=== PATIENT | male | born 1990 | race African-American/Black ===

== ENCOUNTER 2016-05-13 02:20 | Emergency (ER) | payer SELFPAY ==
[~2016-05-13] VITALS: Ht 175.3 cm; Wt 81.6 kg
[2016-05-13] MEDS ORDERED: NKM (02:26)
[2016-05-13] MEDS ORDERED: Solu-MEDROL 125mg Inj IVP ONE (02:45)
[2016-05-13] MEDS ORDERED: Ipratropium 0.02% Inh Soln 2.5ml UD HHN ONE (02:45)
[2016-05-13] MEDS ORDERED: Albuterol ud Inhalation HHN ONE (02:45)
[2016-05-13 02:46] VITALS: BP 145/94
--- NOTE | 2016-05-13 02:46 | Emergency Room Report ---
History of Present Illness General Chief Complaint: Dyspnea/Respdistress Source: Patient Present Illness HPI Is a 25-year-old male with no past medical history. He presents with chief complaint of coughing and shortness of breath the last 5 days. Denies any fever or chills. Has chest tightness and pain. Worse with lying flat. Worse with inspiration. Some diuretics up unable to breathe. He also been noticing his been getting worse for the last month. Unable to smoke in the last few days. Denies any other complaint. 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 He does not wear a mask most of the time. He said is very oral. No history of asthma as a kid. Allergies: Coded Allergies: No Known Allergies (Unverified , 05/13/16) Patient History Past Medical History: none Past Surgical History: none Pertinent Family History: none Social History: Reports: smoking Immunizations: other Reviewed Nursing Documentation: PMH: Agreed, PSxH: Agreed Nursing Documentation-PM Past Medical History: No Stated History Review of Systems Eye: Denies: blurred vision, eye pain ENT: Denies: ear pain, nose congestion, throat swelling Respiratory: Reports: cough, shortness of breath Cardiovascular: Reports: chest pain, Denies: palpitations Gastrointestinal: Denies: abdominal pain, diarrhea, nausea, vomiting Musculoskeletal: Denies: back pain, joint pain Skin: Denies: rash Neurological: Denies: headache, numbness Endocrine: Denies: increased thirst, increased urine Hematologic/Lymphatic: Denies: easy bruising All Other Systems: negative except mentioned in HPI Physical Exam Vital Signs Date Time Temp Pulse Resp B/P Pulse Ox O2 Delivery O2 Flow Rate FiO2 05/13/16 02:23 97.3 88 18 147/106 94 Room Air vitals with hypertension Sp02 EP Interpretation: reviewed, normal General Appearance: well appearing, mild distress Head: normocephalic, atraumatic Eyes: bilateral eye EOMI, bilateral eye PERRL ENT: hearing grossly normal, normal pharynx Neck: full range of motion, supple, no meningismus Respiratory: chest non-tender, respiratory distress - Mild, decreased breath sounds, accessory muscle use, wheezing Cardiovascular #1: regular rate, rhythm, no murmur Gastrointestinal: normal bowel sounds, non tender, no mass, no organomegaly, no bruit, non-distended Musculoskeletal: back normal, gait/station normal, normal range of motion Neurologic: alert, oriented x3 Psychiatric: mood/affect normal Skin: warm/dry Medical Decision Making Diagnostic Impression: Primary Impression: Asthma exacerbation ER Course Patient presents with asthma exacerbation. His wheezing resolved after breathing treatment. His WBC show an elevation of the eosinophil count. This points toward allergic component. There is old carpet in his apartment. He may have allergy to dust from his work. He is feeling better now. No longer wheezing. No evidence of ACS, PE, dissection to name a few. We'll discharge home. Lab Results Impression labs unremarkable Rhythm Strip Diag. Results EP Interpretation: yes Rate: 87 Rhythm: NSR, no PVC's, no ectopy Chest X-Ray Diagnostic Results EP Interpretation: Yes Findings: no consolidation, no effusion, no pneumothorax, no acute cardiopulmonary disease Number of Views: 1 Last Vital Signs Date Time Temp Pulse Resp B/P Pulse Ox O2 Delivery O2 Flow Rate FiO2 05/13/16 02:23 97.3 88 18 147/106 94 Room Air Status: improved Disposition: HOME, SELF-CARE Condition: Stable Scripts Prednisone* (PREDNISONE*) 20 Mg Tablet 60 MG ORAL DAILY, #15 TAB Prov: ELIDA JALLOH M.D. 05/13/16 Albuterol Sulfate* (ALBUTEROL SULFATE MDI*) 8.5 Gm Hfa.aer.ad 2 PUFF INH Q4H Y for cough/wheezing, #1 EA 0 Refills Prov: ELIDA JALLOH M.D. 05/13/16 Additional Instructions: Followup with your DrLexi in 2-3 days. Return if symptom worsen. ELIDA JALLOH M.D. May 13, 2016 02:46
[2016-05-13 03:19] LABS: EOSINOPHILS % (AUTO) 15.2 % (0.0-3.0); LYMPHOCYTES % (AUTO) 35.7 % (20.0-45.0); MEAN CORPUSCULAR HEMOGLOBIN 29.6 PG (27.0-31.0); MEAN CORPUSCULAR HGB CONC 33.1 G/DL (32.0-36.0); MEAN CORPUSCULAR VOLUME 90 FL (80-99); MEAN PLATELET VOLUME 7.9 FL (6.5-10.1); MONOCYTES % (AUTO) 11.4 % (1.0-10.0); NEUTROPHILS % (AUTO) 35.7 % (45.0-75.0); PLATELET COUNT 272 K/UL (150-450); RED BLOOD COUNT 5.58 M/UL (4.70-6.10); RED CELL DISTRIBUTION WIDTH 11.6 % (11.6-14.8); WHITE BLOOD COUNT 4.4 K/UL (4.8-10.8)
[2016-05-13 03:42] LABS: ANION GAP 12 (5-15); CALCIUM 8.9 mg/dL (8.6-10.2); CARBON DIOXIDE 26 mEQ/L (20-30); CHLORIDE 102 mEQ/L (98-107); GLOMERULAR FILTRATION RATE > 60 mL/min (>60); HEMOLYSIS 7; POTASSIUM 4.3 mEQ/L (3.4-4.9); SODIUM 140 mEQ/L (135-145)
[2016-05-13] MEDS ORDERED: ALBUTEROL SULF8.5 GM INH (04:04)
[2016-05-13] MEDS ORDERED: PREDNISONE20 MG ORAL (04:04)
[2016-05-13 04:19] VITALS: BP 144/90
--- NOTE | 2016-05-13 11:38 | Diagnostic Imaging Report ---
Indication: Chest Pain Comparison: None A single view chest radiograph was obtained. Findings: There is pleural disease at the left lung base. This may be pleural thickening or an effusion. Heart size is normal. No infiltrates identified. Impression: Left basilar pleural thickening versus fluid
== END 2016-05-13 04:15 | disposition home or self-care (01) ==
LOC: EMR 02:51
DX: J45.901 Unspecified asthma with (acute) exacerbation (principal); R05 Cough; F17.200 Nicotine dependence, unspecified, uncomplicated
CPT/HCPCS: 36415; 71010; 80048; 85025; 94640; 94664; 96361; 96374; 99284; J2930

== ENCOUNTER 2019-04-13 17:22 | Emergency (ER) | payer MEDICAID ==
[~2019-04-13] VITALS: Ht 172.7 cm; Wt 86.2 kg
[~2019-04-13 17:22] MED LIST: ALBUTEROL SULF8.5 GM INH; NKM; PREDNISONE20 MG ORAL
--- NOTE | 2019-04-13 17:55 | NUR ---
ED Nurse Note: Patient arrived to ED by car from home c/o falling earlier today. Patient fell when walking on broken steps. Right knee 7/10 pain. Patient AxO x 4, VSS. No s/s of acute distress. Bed in lowest position.
[2019-04-13] MEDS ORDERED: IBU800 MG PO (19:06)
--- NOTE | 2019-04-13 19:06 | Emergency Room Report ---
History of Present Illness General Chief Complaint: Lower Extremity Injury Source: Patient Present Illness HPI 28-year-old male with history of asthma currently controlled here complaining of right knee pain after falling off the stairs yesterday. Patient rating the pain 10 out of 10 without radiation. Denies any calf tenderness, tingling numbness. Has not taken medication for symptom relief. Denies head injury, loss of consciousness, dizziness and headache at this time. Denies all other injuries. Is ambulating to the ER with a slight limp. Obvious contusion noted on the right knee. Allergies: Coded Allergies: No Known Allergies (Unverified , 05/13/16) Patient History Past Medical History: see triage record Past Surgical History: unable to obtain Pertinent Family History: none Immunizations: UTD Reviewed Nursing Documentation: PMH: Agreed; PSxH: Agreed Nursing Documentation-PMH Past Medical History: No History, Except For Hx Asthma: Yes Review of Systems All Other Systems: negative except mentioned in HPI Physical Exam Vital Signs Date Time Temp Pulse Resp B/P (MAP) Pulse Ox O2 Delivery O2 Flow Rate FiO2 04/13/19 17:53 98.2 73 16 133/71 (91) 96 Room Air Sp02 EP Interpretation: reviewed, normal General Appearance: no apparent distress, alert, GCS 15, non-toxic Head: normocephalic, atraumatic Eyes: bilateral eye normal inspection, bilateral eye PERRL ENT: hearing grossly normal, normal pharynx, no angioedema, normal voice Neck: full range of motion, supple, no meningismus, supple/symm/no masses Respiratory: chest non-tender, lungs clear, no rhonchi, no wheezing Cardiovascular #1: regular rate, rhythm, no edema, no murmur, normal capillary refill Cardiovascular #2: 2+ dorsalis pedis (R), 2+ dorsalis pedis (L) Gastrointestinal: normal bowel sounds, non tender, soft, non-distended, no guarding, no rebound Rectal: deferred Musculoskeletal: back normal, no calf tenderness, pelvis stable, non-tender, swelling - Right proximal tibiofibular Neurologic: alert, motor strength/tone normal, oriented x3, sensory intact, responsive, speech normal Psychiatric: judgement/insight normal, memory normal, mood/affect normal, no suicidal/homicidal ideation Skin: no rash Lymphatic: no adenopathy Procedures Splinting Splinting : Consent: Verbal Location: Right knee Pre-Made Type: knee immobilizer Pre-Proc Neuro Vasc Exam: normal Post-Proc Neuro Vasc Exam: normal Patient Tolerated: Well Complications: None Medical Decision Making PA Attestation All diagnoses and treatment plans were reviewed and discussed with my supervising physician Dr. Vogt Diagnostic Impression: Primary Impression: Knee contusion ER Course 28-year-old male with history of asthma currently controlled here complaining of right knee pain after falling off the stairs yesterday. Patient rating the pain 10 out of 10 without radiation. Denies any calf tenderness, tingling numbness. Has not taken medication for symptom relief. Denies head injury, loss of consciousness, dizziness and headache at this time. Denies all other injuries. Is ambulating to the ER with a slight limp. Obvious contusion noted on the right knee. Ddx considered but are not limited to: Knee sprain, strain, fracture, contusion , meniscus tear injury Vital signs: are WNL, pt. is afebrile H&PE are most consistent with: Right knee contusion ORDERS: Knee x-ray, ibuprofen 800 ER intervention: Tylenol, knee immobilizer, and crutches DISCHARGE: At this time pt. is stable for d/c to home. Will provide printed patient care instructions, and any necessary prescriptions. Care plan and follow up instructions have been discussed with the patient prior to discharge. Patient to follow-up with primary care provider product development specialist, knee immobilizer was applied for symptom relief and crutches were provided. Patient to follow-up and if worsening symptoms return to the emergency room. Advised patient to have primary doctor to send to physical therapy or possible MRI if symptoms continue or any tingling numbness for possible meniscus injury. Other X-Ray Diagnostic Results Other X-Ray Diagnostic Results : X-Ray ordered: Right knee # of Views/Limited Vs Complete: 3 View Indication: Pain EP Interpretation: Yes EVITA Xray: Interpretation reviewed, by supervising MD, and agrees with findings. Interpretation: no dislocation, no soft tissue swelling, no fractures Impression: No acute disease Electronically Signed by: Melissa Golden PA-C Last Vital Signs Date Time Temp Pulse Resp B/P (MAP) Pulse Ox O2 Delivery O2 Flow Rate FiO2 04/13/19 17:53 98.2 73 16 133/71 (91) 96 Room Air Disposition: HOME, SELF-CARE Condition: Stable Scripts Ibuprofen (Ibu) 800 Mg Tablet 800 MG PO TID, #30 TAB Prov: Melissa Burroughs 04/13/19 Additional Instructions: Follow-up with your primary care provider and product development specialist, take medication as directed, if worsening symptoms return to the emergency room Melissa Burroughs Apr 13, 2019 19:06
[2019-04-13 19:13] VITALS: BP 133/71
--- NOTE | 2019-04-13 19:13 | NUR ---
ED DISCHARGE NOTE: Patient cleared for DC by Melissa JAMA. Patient AxO x 4, VSS. Knee imobilizer applied and crutches given to patient. Patient demonstrated walkin with crutches. Patient verbalized understanding of DC instructions. Patient ID band removed. Patient ambulates with steady gait and took all belongings.
--- NOTE | 2019-04-14 18:22 | Diagnostic Imaging Report ---
Indications: Reason For Exam: TRAUMA Technique: Three views of the right knee Comparison: None Findings: No acute fractures. No dislocations. Joint spaces are preserved. No radiopaque foreign body. Normal mineralization. Impression: No acute process
== END 2019-04-13 19:13 | disposition home or self-care (01) ==
LOC: EMR 18:30
DX: S80.01XA Contusion of right knee, initial encounter (principal); W10.9XXA Fall (on) (from) unspecified stairs and steps, initial encounter; Y92.9 Unspecified place or not applicable
CPT/HCPCS: 29505; 73562; Z7502; 99283